=== PATIENT | male | born 1975 | race Caucasian/White ===

== ENCOUNTER 2021-11-27 14:01 | Outpatient (CLI) | payer OTHER | END 2021-11-27 14:02 | disposition home or self-care (01) | LOC: NAV RAD 14:01 | PROVIDERS: ATTEND Family Medicine | DX: M51.9 Unspecified thoracic, thoracolumbar and lumbosacral intervertebral disc disorder (principal); M47.816 Spondylosis without myelopathy or radiculopathy, lumbar region | CPT/HCPCS: 72100 ==